=== PATIENT | female | born 1995 | race Caucasian/White ===

== ENCOUNTER 2022-10-05 12:21 | Emergency (ER) | payer OTHER ==
[~2022-10-05] VITALS: Ht 167.6 cm; Wt 68.2 kg
[2022-10-05 12:30] VITALS: TEMP 98.5
[2022-10-05] MEDS ORDERED: ZITHROMAX Z PA250 MG PO (14:53)
[2022-10-05 15:00] VITALS: BP 132/90; PULSE 103
== END 2022-10-05 15:04 | disposition home or self-care (01) ==
LOC: COL.ER 12:21
DX: J20.9 Acute bronchitis, unspecified (principal); Z20.822 Contact with and (suspected) exposure to COVID-19; Z28.310 Unvaccinated for COVID-19